=== PATIENT | female | born 1975 | race Hispanic/Latino ===

== ENCOUNTER 2024-05-19 07:35 | Day surgery (SDC) | payer OTHER ==
[2024-05-18 09:34] VITALS: BMI 58.1
[2024-05-19] MEDS ORDERED: Midazolam HCl 2 mg/2 ml Vial ONE (09:19)
[2024-05-19] MEDS ORDERED: PROPOFOL 40 ML ONE (09:27)
[2024-05-19] MEDS ORDERED: PROPOFOL 20 ML ONE ×2 (09:39→09:53)
== END 2024-05-19 10:30 | disposition home or self-care (01) ==
LOC: CSHSDC 07:35
PROVIDERS: ATTEND Surgery
PROC: 0DJD8ZZ Inspection of Lower Intestinal Tract, Via Natural or Artificial Opening Endoscopic (ICD-10-PCS; principal; 2024-05-19)
DX: Z12.11 Encounter for screening for malignant neoplasm of colon (principal); K57.30 Diverticulosis of large intestine without perforation or abscess without bleeding; I10 Essential (primary) hypertension; E78.5 Hyperlipidemia, unspecified; E11.9 Type 2 diabetes mellitus without complications; F41.9 Anxiety disorder, unspecified; F32.A Depression, unspecified; Z98.890 Other specified postprocedural states; Z90.49 Acquired absence of other specified parts of digestive tract; Z88.5 Allergy status to narcotic agent; Z91.041 Radiographic dye allergy status; Z90.710 Acquired absence of both cervix and uterus; Z79.899 Other long term (current) drug therapy
CPT/HCPCS: J2250; J2704

== ENCOUNTER 2025-05-24 15:05 | Outpatient (CLI) | payer OTHER | END 2025-05-24 15:06 | disposition home or self-care (01) | LOC: CSHMAMMO 15:05 | PROVIDERS: ATTEND Physician Assistant | DX: N63.12 Unspecified lump in the right breast, upper inner quadrant (principal) | CPT/HCPCS: 77066; G0279 ==